=== PATIENT | female | born 1965 | race Caucasian/White ===

== ENCOUNTER 2022-09-23 07:18 | Day surgery (SDC) | payer OTHER ==
[2022-09-21 15:25] VITALS: BMI 42.9
[~2022-09-23 07:18] MED LIST: LACTATED RINGERS 1,000 ML IV SCH; LIDOCAINE 1% (10MG/ML) FOR IV START INTRADERMA PRN
[2022-09-23 07:40] VITALS: TEMP 97.2
[2022-09-23 07:57] LABS: Glucose,Whole Blood 139 mg/dL (70-110)
[2022-09-23] MEDS ORDERED: PROPOFOL 10 MG/ML 20 ML VIAL IV ONE (08:40)
--- NOTE | 2022-09-23 09:17 | P.PCN ---
Date of Procedure: 09/23/22 Procedure(s) Performed: BRIEF HISTORY: Patient is a 56-year-old pleasant white female scheduled for an elective colonoscopy as a part of gaining for colorectal neoplasia. PROCEDURE PERFORMED: Colonoscopy snare polypectomy and Endo Clip placement. PREOPERATIVE DIAGNOSIS: Screening for colon cancer. IV sedation per Anesthesia. PROCEDURE: After informed consent was obtained, the patient, was brought into the endoscopy unit. IV sedation was administered by Anesthesia under continuous monitoring. Digital rectal examination was normal. Initially the Olympus CF-160 flexible video colonoscope was then inserted in the rectum, gradually advanced into the cecum without any difficulty. Careful examination was performed as the scope was gradually being withdrawn. Ileocecal valve and the appendiceal orifice were visualized and appeared normal. Prep was excellent. Mucosa of the cecum, ascending colon, transverse colon, descending colon, sigmoid colon, and rectum appeared normal. Retroflexion was performed in the rectum and a 3-4 cm broad- based distal rectal polyp just proximal to the dentate line was noted. This was removed by piecemeal snare polypectomy and almost complete polypectomy was accomplished. Following this endoclips were placed to prevent post-polypectomy bleed. The patient tolerated the procedure well. IMPRESSION: 3-4 cm broad-based polyp in the distal rectum just proximal to the dentate line status post piecemeal snare polypectomy followed by Endo Clip placement and jackson ost complete polypectomy accomplished Rest of the colon appeared normal RECOMMENDATIONS: Findings of this examination were discussed with the patient as well as a family.. He was advised to follow with the biopsy results. She'll be seen in office in one to 2 weeks. Based on the biopsy results will plan a repeat flexible sigmoidoscope in 3-6 months
[2022-09-23 09:28] VITALS: RESP 16
[2022-09-23 10:17] VITALS: BP 115/72; PULSE 77
== END 2022-09-23 10:18 | disposition home or self-care (01) ==
LOC: ORWHC2ENDO 07:18
PROVIDERS: ATTEND Internal Medicine Gastroenterology
DX: Z12.11 Encounter for screening for malignant neoplasm of colon (principal); D12.8 Benign neoplasm of rectum; Z79.899 Other long term (current) drug therapy; Z91.040 Latex allergy status; Z88.8 Allergy status to other drugs, medicaments and biological substances
CPT/HCPCS: 88305; 45382; 45385; J2704

== ENCOUNTER 2023-02-09 07:06 | Day surgery (SDC) | payer OTHER ==
[2023-02-08 09:19] VITALS: BMI 44.6
[~2023-02-09 07:06] MED LIST changes: -LIDOCAINE 1% (10MG/ML) FOR IV START INTRADERMA PRN
[2023-02-09 07:37] VITALS: TEMP 97
[2023-02-09 07:51] LABS: Glucose,Whole Blood 154 mg/dL (70-110)
[2023-02-09] MEDS ORDERED: PROPOFOL 10 MG/ML 20 ML VIAL IV ONE (08:23)
[2023-02-09] MEDS ORDERED: LIDOCAINE 2% INJ 20 MG/ML (2 ML VIAL) ONE (08:23)
--- NOTE | 2023-02-09 08:36 | P.PCN ---
Date of Procedure: 02/09/23 Procedure(s) Performed: BRIEF HISTORY: Patient is a 57-year-old pleasant white female scheduled for an elective sigmoid scope is a part of follow-up of large rectal polyp that was noted on a colonoscopy in September 2022. She was noted to have a 3-4 cm broad- based distal rectal polyp just proximal to the dentate line that was removed by snare polypectomy and biopsies revealed serrated adenoma. She is scheduled for a follow-up sigmoidoscope easily. PROCEDURE PERFORMED: Flexible sigmoidoscope with biopsy PREOPERATIVE DIAGNOSIS: Follow-up large distal rectal polyp noted on colonoscopy in September 2022 centimeters. IV sedation per Anesthesia. PROCEDURE: After informed consent was obtained, the patient, was brought into the endoscopy unit. IV sedation was administered by Anesthesia under continuous monitoring. Digital rectal examination was normal. Initially the Olympus CF-160 flexible video colonoscope was then inserted in the rectum, gradually advanced into the splenic flexure and carefully examined and was performed as the scope was gradually being withdrawn. The prep was excellent. Mucosa of the ascending colon, sigmoid colon appeared normal. The rectum was carefully examined. In the distal rectum just proximal to the dentate line scar tissue noted from previous polypectomy. There was a 3 mm i polyp noted in this area which was removed by cold biopsy. The rest of the rectum appeared normal and the patient tolerated the procedure well. Impression: 3 mm residual polyp in the distal rectum by the dentate line at the site of previous polypectomy status post removal by cold biopsy Rest of the colon appeared splenic flexure appeared normal Recommendations Findings of this examination were discussed with the patient as well as her family. She was advised to follow with the biopsy results and recommend repeat colonoscopy in 3 years..
[2023-02-09] MEDS ORDERED: IV FLUID CONTINUATION 800 ML IV ONE (08:42)
[2023-02-09 08:44] VITALS: RESP 16
[2023-02-09 08:54] VITALS: BP 100/60; PULSE 64
== END 2023-02-09 09:07 | disposition home or self-care (01) ==
LOC: ORWHC2ENDO 07:06
PROVIDERS: ATTEND Internal Medicine Gastroenterology
DX: K62.1 Rectal polyp (principal); I10 Essential (primary) hypertension; J45.909 Unspecified asthma, uncomplicated; E11.9 Type 2 diabetes mellitus without complications; E03.9 Hypothyroidism, unspecified; F41.9 Anxiety disorder, unspecified; E66.01 Morbid (severe) obesity due to excess calories; Z68.41 Body mass index [BMI] 40.0-44.9, adult; Z79.84 Long term (current) use of oral hypoglycemic drugs; Z79.4 Long term (current) use of insulin; Z79.890 Hormone replacement therapy; Z88.8 Allergy status to other drugs, medicaments and biological substances; Z88.1 Allergy status to other antibiotic agents; Z91.041 Radiographic dye allergy status
CPT/HCPCS: 45331; J2704; J2001; 88305